=== PATIENT | male | born 2005 | race Caucasian/White ===

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

== ENCOUNTER 2025-01-09 14:32 | Outpatient (REF) | payer MEDICAID, SELFPAY ==
[2025-01-09 18:02] LABS: Estimated Average Glucose 105 mg/dL; Hemoglobin A1C 112.6237 umol/L; Hemoglobin A1c % 5.3 % (<6.0)
[2025-01-09 18:21] LABS: Alanine Aminotransferase 12 U/L (0-40); Aspartate Amino Transferase 27 U/L (5-37)
[2025-01-18 02:13] LABS: Estradiol Free 0.42 pg/mL; Estradiol, Ultrasensitive 17 pg/mL (< OR = 29)
[2025-02-02 14:33] LABS: Testosterone, Free 35.2 pg/mL (35.0-155.0); Testosterone, Total 176 ng/dL (250-1100)
== END 2025-01-09 14:33 | disposition home or self-care (01) ==
LOC: HO.CHCLDS 14:32
PROVIDERS: Visit Provider Pediatrics
DX: F64.9 Gender identity disorder, unspecified (principal); F41.9 Anxiety disorder, unspecified
CPT/HCPCS: 36415; 82670; 82681; 83036; 84402; 84403; 84443; 84450; 84460